=== PATIENT | male | born 1965 | race Caucasian/White ===

== ENCOUNTER 2021-10-20 12:48 | Inpatient (IN) | payer OTHER ==
[~2021-10-20] VITALS: Ht 175.3 cm; Wt 99.0 kg
[2021-10-20] MEDS ORDERED: IOHEXOL 300 MG/ML 100ML BOTTLE IJ ONE (13:51)
[2021-10-20 14:20] LABS: Basophils # (auto) 0 10 ^3/uL (0-0.2); Basophils % (auto) 0.3 % (0.0-2.0); Eosinophils # (auto) 0.1 10 ^3/uL (0-0.8); Eosinophils % (auto) 0.6 % (0.0-7.0); Hematocrit 26.9 % (41.0-53.0); Hemoglobin 9.4 g/dL (13.5-17.5); Lymphocytes # (auto) 1.2 10 ^3/uL (0.4-5.4); Lymphocytes % (auto) 12.8 % (10.0-50.0); Mean Corpuscular Hemoglobin 32.2 pg (28.0-32.0); Mean Corpuscular Hgb Conc. 34.9 g/dL (32.0-36.0); Mean Corpuscular Volume 92.2 fL (80.0-100.0); Monocytes # (auto) 0.7 10 ^3/uL (0-1.3); Monocytes % (auto) 7.1 % (0.0-12.0); Neutrophils # (auto) 7.7 10 ^3/uL (1.6-8.6); Neutrophils % (auto) 79.2 % (37.0-80.0); Red Blood Cells 2.92 10^6/uL (4.5-5.90); Red Cell Distribution Width 14.6 % (11.8-14.3); White Blood Cell 9.7 10^3/uL (4.4-10.8)
[2021-10-20 14:38] LABS: INR 0.99 (0.9-1.15); Partial Thromboplastin Time 23.5 sec (23.6-33.0)
[2021-10-20 14:39] LABS: Albumin 3.5 g/dL (3.4-5.0); BUN/Creatinine Ratio 68.9; Calcium 8.9 mg/dL (8.5-10.1); Potassium 4.3 mmol/L (3.5-5.1)
[2021-10-20 14:47] LABS: Bilirubin, Total 2.8 mg/dL (0.2-1.0); Total Protein 7.4 g/dL (6.4-8.2)
[2021-10-20 20:03] LABS: Urine Bacteria FEW /hpf (None Seen); Urine Blood Negative /uL (Negative); Urine Mucus FEW (None Seen); Urine Specific Gravity 1.018 (1.001-1.035); Urine WBC 1 /hpf (0 - 3)
[2021-10-20] MEDS ORDERED: ONDANSETRON HCL 4 MG/2 ML VIAL IV PRN (20:30)
[2021-10-20] MEDS ORDERED: D5W/SOD CHL 0.45% 1,000 ML IV ONE (20:30)
[2021-10-20 22:43] VITALS: BP 117/64
[2021-10-20 23:11] VITALS: BP 117/64
[2021-10-21] MEDS: MORPHINE SULFATE INJECTION 2 MG/ML SYRG IV PRN ×2 (00:01→04:16)
[2021-10-21] MEDS ORDERED: MIRT1TAB40 PO (01:57)
[2021-10-21 05:00] VITALS: BP 112/67
[2021-10-21 06:18] LABS: Basophils # (auto) 0 10 ^3/uL (0-0.2); Basophils % (auto) 0.2 % (0.0-2.0); Eosinophils # (auto) 0.1 10 ^3/uL (0-0.8); Eosinophils % (auto) 1.4 % (0.0-7.0); Hematocrit 23.8 % (41.0-53.0); Hemoglobin 8.5 g/dL (13.5-17.5); Lymphocytes # (auto) 1.1 10 ^3/uL (0.4-5.4); Lymphocytes % (auto) 14.9 % (10.0-50.0); Mean Corpuscular Hemoglobin 32.9 pg (28.0-32.0); Mean Corpuscular Hgb Conc. 35.6 g/dL (32.0-36.0); Mean Corpuscular Volume 92.4 fL (80.0-100.0); Monocytes # (auto) 0.7 10 ^3/uL (0-1.3); Monocytes % (auto) 9.1 % (0.0-12.0); Neutrophils # (auto) 5.7 10 ^3/uL (1.6-8.6); Neutrophils % (auto) 74.4 % (37.0-80.0); Red Blood Cells 2.57 10^6/uL (4.5-5.90); Red Cell Distribution Width 14.8 % (11.8-14.3); White Blood Cell 7.6 10^3/uL (4.4-10.8)
[2021-10-21 06:30] LABS: Albumin 2.9 g/dL (3.4-5.0); Calcium 8.3 mg/dL (8.5-10.1); Potassium 4.5 mmol/L (3.5-5.1)
[2021-10-21 06:33] LABS: BUN/Creatinine Ratio 82.8; Bilirubin, Total 1.9 mg/dL (0.2-1.0); Total Protein 6.5 g/dL (6.4-8.2)
[2021-10-21 09:00] VITALS: BP 97/50
[2021-10-21 13:22] VITALS: BP 115/63
[2021-10-21 16:48] VITALS: BP 122/70
[2021-10-21 21:32] VITALS: BP 108/58
[2021-10-22 04:56] VITALS: BP 117/60
[2021-10-22 05:53] LABS: Basophils # (auto) 0 10 ^3/uL (0-0.2); Basophils % (auto) 0.1 % (0.0-2.0); Eosinophils # (auto) 0 10 ^3/uL (0-0.8); Eosinophils % (auto) 0.1 % (0.0-7.0); Hematocrit 24.4 % (41.0-53.0); Hemoglobin 8.4 g/dL (13.5-17.5); Lymphocytes # (auto) 1.2 10 ^3/uL (0.4-5.4); Lymphocytes % (auto) 7.3 % (10.0-50.0); Mean Corpuscular Hemoglobin 31.8 pg (28.0-32.0); Mean Corpuscular Hgb Conc. 34.3 g/dL (32.0-36.0); Mean Corpuscular Volume 92.6 fL (80.0-100.0); Monocytes # (auto) 1.1 10 ^3/uL (0-1.3); Monocytes % (auto) 6.5 % (0.0-12.0); Neutrophils # (auto) 14.5 10 ^3/uL (1.6-8.6); Red Blood Cells 2.63 10^6/uL (4.5-5.90); Red Cell Distribution Width 14.8 % (11.8-14.3); White Blood Cell 16.9 10^3/uL (4.4-10.8)
[2021-10-22 06:13] LABS: Potassium 4.6 mmol/L (3.5-5.1)
[2021-10-22 06:20] LABS: Albumin 2.8 g/dL (3.4-5.0); BUN/Creatinine Ratio 46.1; Bilirubin, Total 2.3 mg/dL (0.2-1.0); Calcium 8.7 mg/dL (8.5-10.1); Total Protein 6.4 g/dL (6.4-8.2)
[2021-10-22 09:00] VITALS: BP 95/55
[2021-10-22 13:00] VITALS: BP 121/69
[2021-10-22 17:00] VITALS: BP 107/62
[2021-10-22 21:54] VITALS: BP 149/63
[2021-10-22 22:17] VITALS: BP 112/63
[2021-10-23 05:00] VITALS: BP 117/68
[2021-10-23 05:39] LABS: Basophils # (auto) 0 10 ^3/uL (0-0.2); Basophils % (auto) 0.2 % (0.0-2.0); Eosinophils # (auto) 0.2 10 ^3/uL (0-0.8); Hemoglobin 8.4 g/dL (13.5-17.5); Monocytes # (auto) 0.8 10 ^3/uL (0-1.3)
[2021-10-23 05:43] LABS: Eosinophils % (auto) 1.7 % (0.0-7.0); Hematocrit 24.4 % (41.0-53.0); Lymphocytes # (auto) 1.5 10 ^3/uL (0.4-5.4); Lymphocytes % (auto) 12.2 % (10.0-50.0); Mean Corpuscular Hgb Conc. 34.5 g/dL (32.0-36.0); Mean Corpuscular Volume 92.7 fL (80.0-100.0); Monocytes % (auto) 6.2 % (0.0-12.0); Neutrophils # (auto) 9.9 10 ^3/uL (1.6-8.6); Neutrophils % (auto) 79.7 % (37.0-80.0); Red Blood Cells 2.63 10^6/uL (4.5-5.90); Red Cell Distribution Width 14.8 % (11.8-14.3); White Blood Cell 12.5 10^3/uL (4.4-10.8)
[2021-10-23 06:03] LABS: Albumin 2.7 g/dL (3.4-5.0); Calcium 8.8 mg/dL (8.5-10.1); Potassium 4.3 mmol/L (3.5-5.1)
[2021-10-23 06:07] LABS: BUN/Creatinine Ratio 38.1; Bilirubin, Total 1.7 mg/dL (0.2-1.0); Total Protein 6.6 g/dL (6.4-8.2)
[2021-10-23 09:00] VITALS: BP 104/65
[2021-10-23] MEDS ORDERED: PANT40TA2 PO (11:28)
[2021-10-23] MEDS ORDERED: CITA-244 PO (11:28)
[2021-10-23] MEDS: HYDROcodone-ACET 10/325MG TAB PO PRN ×2 (12:27→18:03)
[2021-10-23 13:00] VITALS: BP 120/64
[2021-10-23 17:00] VITALS: BP 120/67
[2021-10-23 22:00] VITALS: BP 127/70
[2021-10-24 05:00] VITALS: BP 145/78
[2021-10-24 08:53] VITALS: BP 140/58
[2021-10-24 13:00] VITALS: BP 154/69
== END 2021-10-24 15:47 | DRG 964 ==
LOC: EDBD 12:48 → ER 12:48 → EEVIPCON 12:48 → OVERFLOW 20:27 → WEST WING 22:45 → TELE-WESTW 10-22 22:31
PROVIDERS: ADMIT Internal Medicine; ATTEND Internal Medicine
DX: S06.330A Contusion and laceration of cerebrum, unspecified, without loss of consciousness, initial encounter (principal); G93.40 Encephalopathy, unspecified; S27.329A Contusion of lung, unspecified, initial encounter; S22.42XA Multiple fractures of ribs, left side, initial encounter for closed fracture; E46 Unspecified protein-calorie malnutrition; N17.9 Acute kidney failure, unspecified; R64 Cachexia; N19 Unspecified kidney failure; B19.20 Unspecified viral hepatitis C without hepatic coma; K80.20 Calculus of gallbladder without cholecystitis without obstruction; D64.9 Anemia, unspecified; E86.0 Dehydration; I10 Essential (primary) hypertension; Z82.49 Family history of ischemic heart disease and other diseases of the circulatory system; Z87.891 Personal history of nicotine dependence; Z88.0 Allergy status to penicillin; Z68.32 Body mass index [BMI] 32.0-32.9, adult; Y08.89XA Assault by other specified means, initial encounter; Y93.89 Activity, other specified; Y92.148 Other place in prison as the place of occurrence of the external cause; Y99.8 Other external cause status
CPT/HCPCS: 36415; 70450; 70551; 71111; 71250; 72125; 73562; 73610; 74176; 76705; 80053; 81001; 85025; 85610; 85730; 87081; 93005; 93306; 96360; G0378; J2405